=== PATIENT | female | born 1945 | race Caucasian/White ===

== ENCOUNTER → 2018-07-03 | Outpatient (CLI) | payer OTHER, MEDICARE | LOC: CIMAGING 09:19 | PROVIDERS: ATTEND Family Medicine | DX: M24.812 Other specific joint derangements of left shoulder, not elsewhere classified (principal) | CPT/HCPCS: 73030-PO ==

== ENCOUNTER → 2018-08-04 | Outpatient (CLI) | payer OTHER, MEDICARE | LOC: FIMAGING 07:42 | PROVIDERS: ATTEND Orthopaedic Surgery | DX: M19.012 Primary osteoarthritis, left shoulder (principal); M24.112 Other articular cartilage disorders, left shoulder; M75.22 Bicipital tendinitis, left shoulder ==

== ENCOUNTER 2018-10-01 07:48 | Day surgery (SDC) | payer OTHER, MEDICARE ==
[2018-10-01] MEDS ORDERED: ceFAZolin 2 GM/DEXTROSE 100 ML IV ONE (08:08)
[2018-10-01] MEDS ORDERED: ACETAMINOPHEN 500 MG TAB PO ONE (08:08)
[2018-10-01] MEDS ORDERED: LR 1,000 ML IV ONE (08:09)
[2018-10-01] MEDS ORDERED: LIDOCAINE 1% 2 ML INJ ID PRN (08:09)
--- NOTE | 2018-10-01 08:12 | PDANEPAE ---
ANE Past Medical History - Cardiovascular History Hx Hypertension: No Hx Arrhythmias: No Hx Chest Pain: No Hx Coronary Artery / Peripheral Vascular Disease: No Hx CHF / Valvular Disease: No Hx Palpitations: No - Pulmonary History Hx COPD: No Hx Asthma/Reactive Airway Disease: No Hx Recent Upper Respiratory Infection: No Hx Oxygen in Use at Home: No Hx Sleep Apnea: No Sleep Apnea Screening Result - Last Documented: Negative - Neurologic History Hx Cerebrovascular Accident: No Hx Seizures: No Hx Dementia: No - Endocrine History Hx Diabetes: No Hypothyroid: Yes Obesity: no Endocrine History Comment: HYPOTHYROID - Renal History Hx Renal Disorders: No - Liver History Hx Hepatic Disorders: No - Neurological & Psychiatric Hx Hx Neurological and Psychiatric Disorders: Yes Neurological / Psychiatric History Comment: DEPRESSION - Cancer History Hx Cancer: Yes Cancer History Comment: BREAST - Congenital Disorder History Hx Congenital Disorders: No - GI History Hx Gastrointestinal Disorders: No - Other Health History Other Health History: OSTEOPENIA. LT ARM LIMITED ROM. DDD - Chronic Pain History Chronic Pain: Yes (LT SHLDR,LOWER BACK) - Surgical History Prior Surgeries: LOWER LT EYE 10/2009. HEMORRHOIDECTOMY. LT BREAST LUMPECTOMY FOR CA. HYSTERECTOMY. CLAIRE CATARACT. CERVICAL FUSION C-3,T-3 ANE Review of Systems Review of Systems: - Exercise capacity METS (RN): 4 METS ANE Patient History - Allergies Allergies/Adverse Reactions: latex Allergy (Verified 09/19/18 11:39) Rash - Home Medications Home Medications: Herbals/Supplements -Info Only DAILY 09/19/18 [Last Taken Unknown] Lexapro 10 MG DAILY 09/19/18 [Last Taken 10/01/18 06:00] Synthroid 50 mcg (*) DAILY 09/19/18 [Last Taken 10/01/18 06:00] - Smoking Hx Smoking Status: Never smoked ANE Labs/Vital Signs - Vital Signs Height: 162.56 cm Weight: 54.431 kg ANE Physical Exam - Airway Neck exam: FROM, decreased ROM Mallampati Score: Class 1 Mouth exam: normal dental/mouth exam - Pulmonary Pulmonary: clear to auscultation - Cardiovascular Cardiovascular: regular rate and rhythym - ASA Status ASA Status: II ANE Anesthesia Plan Anesthesia Plan: general endotracheal anesthesia Regional Anesthesia: single shot NB, interscalene BP NB
[2018-10-01] MEDS ORDERED: EPINEPHrine 1 MG/ML INJ ONE (08:28)
[2018-10-01] MEDS ORDERED: BUPIVACAINE/EPI 0.5% 30 ML SDV ONE (08:28)
[2018-10-01] MEDS ORDERED: ROPIVACAINE HCL 150 MG/30 ML INJ ONE (08:53)
[2018-10-01] MEDS ORDERED: LIDOCAINE 2% 5 ML SDV ONE (09:04)
--- NOTE | 2018-10-01 09:44 | PDHPUP ---
History & Physical Update H&P update statement: This history and physical update is based on an assessment of the patient which was completed after admission or registration (within 24 hours), but prior to the surgery/procedure. H&P update: H&P reviewed & patient examined, no change in patient's condition since H&P completed
--- NOTE | 2018-10-01 09:45 | PDGENHP ---
History & Physical Chief Complaint: l shoulder pain Relevant Physical Exam: pain to ss and speed Cardiorespiratory Assessment: cta. rrr. soft and nt
[2018-10-01] MEDS ORDERED: MIDAZOLAM 2 MG/2 ML VIAL IVP ONE ×2 (09:55→10:35)
[2018-10-01] MEDS ORDERED: MIDAZOLAM 2 MG/2 ML VIAL ONE (10:06)
[2018-10-01] MEDS ORDERED: fentaNYL 100 MCG/2 ML INJ ONE (10:10)
[2018-10-01] MEDS ORDERED: PROPOFOL 200 MG/20 ML VIAL ONE (10:10)
[2018-10-01] MEDS ORDERED: ROCURONIUM 50 MG/5 ML VIAL ONE ×2 (10:33)
[2018-10-01] MEDS ORDERED: CALCIUM CHLORIDE 1 GM/10 ML INJ ONE (10:45)
[2018-10-01] MEDS ORDERED: THROMBIN (BOVINE) 5,000 UNIT VIAL TP ONE (10:45)
--- NOTE | 2018-10-01 11:04 | POSTANESTH ---
Post Anesthetic Evaluation Respiratory Status: Normal, Stable Level of Consciousness/Mental Status: Can Participate in Eval Pain Control: Adequate, Prn Tx Ordered Nausea/Vomiting Control: Adequate, Prn Tx Ordered Complications Possibly Related to Anesthesia: None Noted
[2018-10-01] MEDS ORDERED: DEXAMETHASONE 4 MG/ML VIAL ONE (11:05)
[2018-10-01] MEDS ORDERED: ONDANSETRON 4 MG/2 ML VIAL ONE (11:05)
[2018-10-01] MEDS ORDERED: ALBUTEROL 3 ML DEYVIAL IH PRN (11:33)
[2018-10-01] MEDS ORDERED: fentaNYL 100 MCG/2 ML INJ IVP PRN (11:33)
[2018-10-01] MEDS ORDERED: DEXAMETHASONE 4 MG/ML VIAL IVP PRN (11:33)
[2018-10-01] MEDS ORDERED: NALOXONE HCL 0.4 MG/ML INJ IVP PRN (11:33)
[2018-10-01] MEDS ORDERED: DIAZEPAM 5 MG/ML 1 ML SYR IVP PRN (11:33)
[2018-10-01] MEDS ORDERED: LR 500 ML IV PRN (11:33)
[2018-10-01] MEDS ORDERED: LABETALOL HCL 5 MG/ML 20 ML MDV IVP PRN (11:33)
[2018-10-01] MEDS ORDERED: MEPERIDINE 25 MG/0.5 ML AMP IVP PRN (11:33)
[2018-10-01] MEDS ORDERED: PROMETHAZINE HCL 25 MG/ML INJ IVP PRN (11:33)
[2018-10-01] MEDS ORDERED: HYDROmorphONE/DILAUDID 2 MG/ML INJ IVP PRN (11:33)
[2018-10-01] MEDS ORDERED: PHENYLEPHRINE HCL 100 MCG/ML SYR IVP PRN (11:33)
[2018-10-01] MEDS ORDERED: KETOROLAC 15 MG/1 ML SDV IVP ONE (11:41)
[2018-10-01] MEDS ORDERED: OXYCODONE/APAP 5/325 TAB PO PRN (11:41)
[2018-10-01] MEDS ORDERED: ONDANSETRON 4 MG/2 ML VIAL IVP PRN (11:41)
[2018-10-01] MEDS ORDERED: ACETAMINOPHEN 325 MG TAB PO PRN (11:41)
--- NOTE | 2018-10-01 11:41 | POSTOPPROG ---
Post Op Note Date of Operation: 10/01/18 Surgeon: Vania Morales Senior Nurse Manager: coltrain Anesthesia: LMA, Other (Specify) Pre-op Diagnosis: l shoulder impingment with rct and oa Procedure: l shoulder scope wih rcrx1/sad/dce/debridement/chondroplasty Inf/Abcess present in the surg proc area at time of surgery?: No Depth: Deep Incisional (Fascial) EBL: 50-100
[2018-10-01] MEDS ORDERED: KETOROLAC 15 MG/1 ML SDV ONE (12:50)
[2018-10-01 14:43] VITALS: BP 148/79
--- NOTE | 2018-10-02 04:34 | GOP ---
DATE OF OPERATION: 10/01/2018 SURGEON: Vania Morales MD DECK SCALER: RENETTA Martinez, LSA, whose presence was medically necessary. ANESTHESIA: LMA plus scalene nerve block per surgeon's request. PREOPERATIVE DIAGNOSIS: Left shoulder impingement syndrome with labral tear, glenohumeral joint oste oarthritis, and rotator cuff tear. POSTOPERATIVE DIAGNOSIS: Left shoulder impingement syndrome with labral tear, glenohumeral joint ost eoarthritis, and rotator cuff tear. PROCEDURE PERFORMED: Left shoulder arthroscopy with rotator cuff repair x1; subacromial decompressio n; distal clavicle excision; debridement of labrum, biceps, anchor, and rotator cuff as well as chond roplasty of the glenohumeral joint. FINDINGS: INDICATIONS: This is a 73-year-old female with increasing pain into the left arm inhibiting her abil ity to do activities of daily living, especially being able to reach over her head or away from her b [place]. MRI has revealed a large anterior acromial curve and inferior spur off the clavicle, glenohumer al joint arthritis, labral tearing, and a very thin rotator cuff. She wishes to have surgery in [facility] to resolve the problem. DESCRIPTION OF PROCEDURE: Patient was brought to the operating room after the left side had been hannah ntified as the correct side by the patient, nurse, and physician. Once in the operating room, she wa s given a scalene block on the left side then placed under general anesthesia using an LMA. Once asl eep, she was placed in a beach chair position with the left upper extremity sterilely prepped and kevin ped in usual fashion using GSI solution. Once prepped and draped, incision was made on the posterola teral corner of the acromion where the camera was introduced without difficulty. Inspection of the j oint revealed extensive tearing of the superior and anterior portions of the labrum as well as grade 3 to 4 chondral changes to the glenoid and grade 3 changes to the humeral head. There was noted to b e an abundant amount of fraying of the rotator cuff also. However, the bulk of the biceps looked goo d with no significant damage except for the very anchor of the biceps which had some minor fraying. Therefore, using an in-to-out technique an anterior portal was made superolateral to the coracoid pro cess with a 6 x 75 mm threaded cannula placed through the anterior portal and a 3.5 mm smooth shaver used to debride and debulk the extensive tearing of the superior and anterior portions of the labrum. Chondroplasty of the glenoid and removed the significant fraying associated with the rot ator cuff. Once completed, all instruments were removed from the glenohumeral joint and, using the s debbi portal sites, were reintroduced in the subacromial space. A third incision was made 2 cm lateral to the acromial process in line with the posterior cortex of the clavicle with the camera switched t o the lateral portal and alternatingly using arthroscopic Bovie tip and a shaver was used to remove t he soft tissue from the undersurface of the acromion as well as the bursa within the subacromial spac e. She was noted to have a large anterior acromial curve brought through the posterior po rtal and used to remove that curve until achieving a flat ceiling. Attention was then turned to the distal clavicle which was also noted to have a sharp inferior spur, and this was also removed using a combination of shaver and bur. A thorough inspection of the rotator cuff was done, and in the midpo rtion of the supraspinatus she was noted to have a large cleavage area associated with the rotator cu ff. It went down to bone. Therefore, tissue was debrided around the area. The footprint associated with the greater tuberosity was eburnated using a bur. #2 FiberWire was woven into the anterior and posterior limbs of the rotator cuff tear which were attached to a 4.5 mm Lolita[place] anchor that was dri tai into the bone, bringing the rotator cuff onto the eburnated bone of the greater tuberosity. Once completed, all instruments were removed from the subacromial space with 30 cc of Marcaine infused in the subacromial space. The three portal sites were closed using -0 nylon suture in a figu re-of-eight type stitch. Plasma gel was then injected into the subacromial space. The wound was the n dressed with Xeroform, 4 x 4, and Tegaderm. The patient was completely undraped in the operating r oom, had a shoulder immobilizer placed on the left upper extremity. She was then woken up, extubated , transferred onto a stretcher, and sent to recovery room in good condition. /[id number]/MODL
== END 2018-10-01 14:40 | disposition home or self-care (01) ==
LOC: FSGY 07:48
PROVIDERS: ATTEND Orthopaedic Surgery
DX: M19.012 Primary osteoarthritis, left shoulder (principal); M75.112 Incomplete rotator cuff tear or rupture of left shoulder, not specified as traumatic; M75.42 Impingement syndrome of left shoulder; M75.82 Other shoulder lesions, left shoulder; E03.9 Hypothyroidism, unspecified; F32.9 Major depressive disorder, single episode, unspecified; M85.89 Other specified disorders of bone density and structure, multiple sites; Z85.3 Personal history of malignant neoplasm of breast; Z98.1 Arthrodesis status
CPT/HCPCS: C1713; J0171; J0690; J1100; J1885; J2250; J2405; J2704; J2795; J3010

== ENCOUNTER → 2018-12-31 | Outpatient (CLI) | payer OTHER, MEDICARE | LOC: FIMAGING 08:37 | PROVIDERS: ATTEND Family Medicine | DX: Z13.820 Encounter for screening for osteoporosis (principal); M85.88 Other specified disorders of bone density and structure, other site; M48.54XA Collapsed vertebra, not elsewhere classified, thoracic region, initial encounter for fracture; Z78.0 Asymptomatic menopausal state; Z85.3 Personal history of malignant neoplasm of breast; E07.9 Disorder of thyroid, unspecified; Z79.899 Other long term (current) drug therapy ==